=== PATIENT | male | born 1960 | race Caucasian/White ===

== ENCOUNTER 2018-09-23 12:30 | Emergency (ER) | payer BC ==
[~2018-09-23] VITALS: Ht 193 cm; Wt 142.0 kg
--- NOTE | 2018-09-23 13:37 | NUR ---
FROM LOBBY TO ROOM AT THIS TIME
[2018-09-23] MEDS ORDERED: SODIUM CHLORIDE FLUSH 10ML SYR IVF ONE (14:00)
[2018-09-23 14:13] LABS: BASOPHILS # (AUTO) 0.03 x10^3/uL (0-0.1); BASOPHILS % (AUTO) 0 % (0-1); EOSINOPHILS # (AUTO) 0.04 x10^3/uL (0-0.4); EOSINOPHILS % (AUTO) 1 % (1-7); LYMPHOCYTES # (AUTO) 1.15 x10^3/uL (1-3.4); LYMPHOCYTES % (AUTO) 14 % (22-44); MD NO; MEAN CORPUSCULAR HEMOGLOBIN 31.2 pg (27.5-34.5); MEAN CORPUSCULAR HGB CONC 33.5 g/dL (33.2-36.2); MEAN CORPUSCULAR VOLUME 93.1 fL (81-97); MEAN PLATELET VOLUME 9.1 fL (7.4-10.4); MONOCYTES # (AUTO) 0.64 x10^3/uL (0.2-0.8); MONOCYTES % (AUTO) 8 % (2-9); NEUTROPHILS # (AUTO) 6.21 x10^3/uL (1.8-6.8); NEUTROPHILS % (AUTO) 77 % (42-75); PLATELET COUNT 167 x10^3/uL (130-400); RED BLOOD COUNT 5.28 x10^6/uL (4.38-5.82); RED CELL DISTRIBUTION WIDTH 14.1 % (9.4-14.8)
[2018-09-23 14:25] LABS: ALBUMIN 4.3 g/dL (3.4-5.0); ANION GAP 8 mmol/L (5-15); CALCIUM 9.6 mg/dL (8.5-10.1); CHLORIDE 107 mmol/L (98-107)
[2018-09-23 14:30] LABS: CREATININE 1.38 mg/dL (0.7-1.3); TROPONIN I < 0.015 ng/mL (0.000-0.045)
[2018-09-23] MEDS ORDERED: PROB500T22 PO (14:34)
[2018-09-23] MEDS ORDERED: CHOL20002 PO (14:35)
[2018-09-23] MEDS ORDERED: CHOL100011 PO (14:35)
[2018-09-23] MEDS ORDERED: ALLO300T PO (14:35)
[2018-09-23] MEDS ORDERED: WARF6TAB47 PO (14:35)
--- NOTE | 2018-09-23 14:50 | NUR ---
Patient to CT 1450
--- NOTE | 2018-09-23 14:51 | NUR ---
Patient reports occasional SOB and pain upon inspiration only on the left side. Pain 4/10. Patient does not appear to be in acute distress.
--- NOTE | 2018-09-23 14:52 | NUR ---
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
[2018-09-23 15:26] VITALS: BP 145/94
[2018-09-23] MEDS ORDERED: OMNIPAQUE 350 MG/ML, 150 ML BOTTLE ONE (15:56)
[2018-09-23] MEDS ORDERED: SODIUM CHLORIDE 0.9% 1,000ML IVBOLUS ONE (16:00)
== END 2018-09-23 16:08 | disposition home or self-care (01) ==
LOC: ED 14:19 → UNDOADMIN 15:34 → EDIP 15:34 → ED 16:08
DX: R09.1 Pleurisy (principal); Z86.718 Personal history of other venous thrombosis and embolism
CPT/HCPCS: 36415; 71045; 71275; 80048; 82040; 84484; 85025; 93005; 99284; Q9967

== ENCOUNTER 2020-04-10 17:44 | Inpatient (IN) | payer BC ==
[~2020-04-10] VITALS: Ht 193 cm; Wt 124.0 kg
[~2020-04-10 17:44] MED LIST: ALLO300T PO; CHOL100011 PO; CHOL20002 PO; PROB500T22 PO; WARF6TAB47 PO
[2020-04-10 18:30] LABS: BASOPHILS % (AUTO) 1 % (0-1); EOSINOPHILS % (AUTO) 2 % (1-7); LYMPHOCYTES % (AUTO) 17 % (22-44); MEAN CORPUSCULAR HEMOGLOBIN 30.2 pg (27.5-34.5); MEAN CORPUSCULAR HGB CONC 33.1 g/dL (33.2-36.2); MEAN PLATELET VOLUME 9.8 fL (7.4-10.4); MONOCYTES % (AUTO) 9 % (2-9); NEUTROPHILS % (AUTO) 72 % (42-75); PLATELET COUNT 183 x10^3/uL (130-400); RED BLOOD COUNT 5.39 x10^6/uL (4.38-5.82); RED CELL DISTRIBUTION WIDTH 13.4 % (9.4-14.8)
[2020-04-10 18:33] LABS: MD NO
[2020-04-10 18:38] LABS: ALBUMIN 4.1 g/dL (3.4-5.0); ANION GAP 7 mmol/L (5-15); CALCIUM 9.7 mg/dL (8.5-10.1); CHLORIDE 106 mmol/L (98-107)
[2020-04-10 18:40] LABS: INTERNATIONAL NORMALIZED RATIO 2.04 (0.93-1.1); PROTHROMBIN TIME 21.5 Seconds (9.6-11.5)
[2020-04-10 18:43] LABS: ALKALINE PHOSPHATASE 57 U/L (45-117); BILIRUBIN,TOTAL 0.9 mg/dL (0.2-1.0); TOTAL PROTEIN 7.7 g/dL (6.4-8.2); TROPONIN I < 0.015 ng/mL (0.000-0.045)
[2020-04-10 18:45] LABS: ALANINE AMINOTRANSFERASE 37 U/L (12-78)
[2020-04-10] MEDS ORDERED: LORazepam 2 MG/ML, 1ML IVPush ONE (19:00)
[2020-04-10] MEDS ORDERED: LORazepam 2 MG/ML, 1ML ONE (19:18)
--- NOTE | 2020-04-10 19:45 | NUR ---
Traveled to MRI with altitude chamber technician. MRI screening form completed with this RN and pt. Given to altitude chamber technician. Medicated per MD order r/t claustrophobia
[2020-04-10] MEDS ORDERED: GADOTERATE 10 MMOL/20 ML SYR ONE (19:54)
--- NOTE | 2020-04-10 20:05 | NUR ---
Attempted report to floor at 2004. Pt remains at MRI with tech
--- NOTE | 2020-04-10 20:50 | NUR ---
Hospitalist at bedside
--- NOTE | 2020-04-10 20:52 | NUR ---
Report given to Oksana VELÁSQUEZ
[2020-04-10 21:25] VITALS: BP 170/89
[2020-04-10] MEDS ORDERED: HYDROcodone/APAP 5/325 TABLET PO PRN (21:30)
[2020-04-10] MEDS ORDERED: ACETAMINOPHEN 325 MG TABLET PO PRN (21:30)
[2020-04-10] MEDS ORDERED: DOCUSATE 100 MG CAPSULE PO PRN (21:30)
[2020-04-10] MEDS: NICOTINE 14MG/24 HR PATCH.TD24 TD SCH (21:30)
[2020-04-10] MEDS ORDERED: TEMAZEPAM 15 MG CAPSULE PO PRN (21:30)
[2020-04-10] MEDS: ATORVASTATIN 80 MG TABLET PO SCH (22:11)
[2020-04-10] MEDS ORDERED: WARFARIN 3 MG TABLET PO-COUM ONE (22:30)
[2020-04-11 02:29] VITALS: BP 125/74
[2020-04-11 05:29] LABS: BASOPHILS % (AUTO) 1 % (0-1); EOSINOPHILS % (AUTO) 3 % (1-7); LYMPHOCYTES % (AUTO) 22 % (22-44); MEAN CORPUSCULAR HEMOGLOBIN 30.3 pg (27.5-34.5); MEAN CORPUSCULAR HGB CONC 33.3 g/dL (33.2-36.2); MEAN PLATELET VOLUME 10.1 fL (7.4-10.4); MONOCYTES % (AUTO) 9 % (2-9); NEUTROPHILS % (AUTO) 65 % (42-75); PLATELET COUNT 180 x10^3/uL (130-400); RED BLOOD COUNT 5.18 x10^6/uL (4.38-5.82); RED CELL DISTRIBUTION WIDTH 13.1 % (9.4-14.8)
[2020-04-11 05:39] LABS: INTERNATIONAL NORMALIZED RATIO 1.85 (0.93-1.1); MD NO; PROTHROMBIN TIME 19.5 Seconds (9.6-11.5)
[2020-04-11 05:43] LABS: CHLORIDE 111 mmol/L (98-107)
[2020-04-11 05:51] LABS: CALCIUM 8.8 mg/dL (8.5-10.1); CHOL/HDL RATIO 5.5; CHOLESTEROL, TOTAL 188 mg/dL (140-239); CREATININE 0.93 mg/dL (0.7-1.3); HDL CHOL % 18 % (26-37); HDL CHOLESTEROL (DIRECT) 34 mg/dL (40-60); LDL CHOLESTEROL,CALCULATED 126 mg/dL (54-169); LDL/HDL RATIO 3.7 (0.5-3.0); TRIGLYCERIDES 138 mg/dL (50-200); VLDL CHOLESTEROL 28 mg/dL (0-25)
[2020-04-11 06:00] LABS: ANION GAP 5 mmol/L (5-15)
[2020-04-11 06:12] VITALS: BP 137/77
[2020-04-11] MEDS ORDERED: ASPIRIN 81 MG TABLET CHEW PO/NG SCH (09:00)
[2020-04-11] MEDS ORDERED: OMNIPAQUE 350 MG/ML, 75ML BOTTLE ONE (09:35)
[2020-04-11 12:00] VITALS: BP 120/73
[2020-04-11] MEDS ORDERED: WARFARIN 7.5 MG TABLET PO-COUM ONE (18:00)
[2020-04-11 18:54] VITALS: BP 147/80
[2020-04-11] MEDS ORDERED: WARFARIN 1 MG TABLET PO-COUM ONE (18:58)
[2020-04-11] MEDS ORDERED: WARFARIN 5 MG TABLET PO-COUM ONE (18:59)
[2020-04-11] MEDS: ATORVASTATIN 80 MG TABLET PO SCH (19:55)
[2020-04-11] MEDS: NICOTINE 14MG/24 HR PATCH.TD24 TD SCH (19:55)
[2020-04-12 00:46] VITALS: BP 128/76
[2020-04-12 05:16] LABS: INTERNATIONAL NORMALIZED RATIO 1.95 (0.93-1.1); PROTHROMBIN TIME 20.5 Seconds (9.6-11.5)
[2020-04-12 06:34] VITALS: BP 133/79
[2020-04-12 08:09] VITALS: BP 129/83
[2020-04-12 12:04] VITALS: BP 135/82
[2020-04-12] MEDS ORDERED: LIDOCAINE 2%, 20ML ONE (13:47)
[2020-04-12] MEDS ORDERED: APIX5TAB PO (16:40)
[2020-04-12] MEDS ORDERED: ATOR-2 PO (16:40)
[2020-04-12] MEDS ORDERED: WARFARIN 7.5 MG TABLET PO-COUM ONE (18:00)
[2020-04-12] MEDS ORDERED: APIXABAN 5 MG TABLET ONE (18:57)
[2020-04-12] MEDS ORDERED: APIXABAN 5 MG TABLET PO SCH (21:00)
== END 2020-04-12 19:28 | disposition home or self-care (01) | DRG 41 ==
LOC: ED 19:37 → 4WST 21:25
PROVIDERS: ADMIT Family Medicine; ATTEND Internal Medicine
PROC: 0JH602Z Insertion of Monitoring Device into Chest Subcutaneous Tissue and Fascia, Open Approach (ICD-10-PCS; principal; 2020-04-12)
DX: I63.9 Cerebral infarction, unspecified (principal); D68.59 Other primary thrombophilia; E66.2 Morbid (severe) obesity with alveolar hypoventilation; Q21.1 Atrial septal defect; E78.00 Pure hypercholesterolemia, unspecified; E78.5 Hyperlipidemia, unspecified; G89.29 Other chronic pain; I11.9 Hypertensive heart disease without heart failure; I73.9 Peripheral vascular disease, unspecified; I87.2 Venous insufficiency (chronic) (peripheral); M19.90 Unspecified osteoarthritis, unspecified site; R13.0 Aphagia; R47.01 Aphasia; Z79.01 Long term (current) use of anticoagulants; Z79.899 Other long term (current) drug therapy; Z80.1 Family history of malignant neoplasm of trachea, bronchus and lung; Z80.42 Family history of malignant neoplasm of prostate; Z86.711 Personal history of pulmonary embolism; Z86.718 Personal history of other venous thrombosis and embolism; Z86.73 Personal history of transient ischemic attack (TIA), and cerebral infarction without residual deficits; Z87.891 Personal history of nicotine dependence; Z80.9 Family history of malignant neoplasm, unspecified; Z80.41 Family history of malignant neoplasm of ovary; Z88.8 Allergy status to other drugs, medicaments and biological substances; Z68.33 Body mass index [BMI] 33.0-33.9, adult
CPT/HCPCS: 33285; 36415; J3490; 70450; 70498; 70553; 71045; 80048; 80053; 80061; 84484; 85025; 85610; 85730; 93005; 93306; 93356; 93970; C1764; G0378; Q9967; 92523-GN; A9575; J2060

== ENCOUNTER 2020-04-23 18:57 | Inpatient (IN) | payer BC ==
[~2020-04-23] VITALS: Ht 190.5 cm; Wt 126.3 kg
[~2020-04-23 18:57] MED LIST changes: +APIX5TAB PO; +ATOR-2 PO
[2020-04-23 19:35] LABS: BASOPHILS % (AUTO) 1 % (0-1); EOSINOPHILS % (AUTO) 2 % (1-7); LYMPHOCYTES % (AUTO) 16 % (22-44); MEAN CORPUSCULAR HEMOGLOBIN 30.1 pg (27.5-34.5); MEAN CORPUSCULAR HGB CONC 33.1 g/dL (33.2-36.2); MEAN PLATELET VOLUME 9.8 fL (7.4-10.4); MONOCYTES % (AUTO) 9 % (2-9); NEUTROPHILS % (AUTO) 73 % (42-75); PLATELET COUNT 187 x10^3/uL (130-400); RED BLOOD COUNT 5.62 x10^6/uL (4.38-5.82); RED CELL DISTRIBUTION WIDTH 13.2 % (9.4-14.8)
[2020-04-23 19:37] LABS: MD NO
--- NOTE | 2020-04-23 19:40 | NUR ---
PT HERE FOR CC OF STROKE LIKE SYMPTOMS FROM 10A-5P TODAY. STATES "IM HAVING THE SAME SYMPTOMS THE LAST TIME I HAD A TIA". STATES HE HAD TINGLING IN R SIDE OF TONGUE AND NECK, HEAVY SHOULDERS, TROUBLE SPEAKING AND SWALLOWING. PT STATES ALL SYMPTOMS HAVE RESOLVED CURRENTLY. SON AT BEDSIDE
[2020-04-23 19:44] LABS: PROTHROMBIN TIME 10.6 Seconds (9.6-11.5)
[2020-04-23 19:45] LABS: ALANINE AMINOTRANSFERASE 64 U/L (12-78); ANION GAP 2 mmol/L (5-15); CALCIUM 9.7 mg/dL (8.5-10.1); CHLORIDE 105 mmol/L (98-107)
[2020-04-23 19:49] LABS: ALKALINE PHOSPHATASE 64 U/L (45-117); BILIRUBIN,TOTAL 1.2 mg/dL (0.2-1.0); TOTAL PROTEIN 7.5 g/dL (6.4-8.2); TROPONIN I < 0.015 ng/mL (0.000-0.045)
--- NOTE | 2020-04-23 20:20 | NUR ---
MRI SCREENING SHEET FAXED
[2020-04-23] MEDS ORDERED: LORazepam 1MG TABLET ONE (20:47)
[2020-04-23] MEDS ORDERED: LORazepam 1MG TABLET PO ONE (21:00)
[2020-04-23] MEDS ORDERED: DIAZEPAM 5 MG/ML, 2ML ONE (21:21)
[2020-04-23] MEDS ORDERED: DIAZEPAM 5 MG/ML, 2ML IV ONE (21:30)
--- NOTE | 2020-04-23 21:30 | NUR ---
PT MEDICATED IN MRI FOR ANXIETY. IV PLACED. PT REPORTS RELIEF OF ANXIETY AFTER IV MED GIVEN.
--- NOTE | 2020-04-23 21:58 | NUR ---
PT BACK FROM MRI
--- NOTE | 2020-04-23 23:21 | NUR ---
PT AND SON UPDATED ON POC AND ADMISSION.
--- NOTE | 2020-04-23 23:42 | NUR ---
[facility] AT BEDSIDE
--- NOTE | 2020-04-23 23:52 | NUR ---
REPORT GIVEN TO PAWAN VELÁSQUEZ
[2020-04-24] MEDS ORDERED: hydrALAzine 20 MG/ML, 1ML IVPush PRN
[2020-04-24] MEDS ORDERED: ONDANSETRON 2MG/ML, 2ML IVPush PRN
[2020-04-24 00:26] VITALS: BP 130/82
[2020-04-24 00:30] VITALS: BP 130/82
[2020-04-24] MEDS ORDERED: ASCO500C10 PO (00:49)
[2020-04-24] MEDS ORDERED: ZINC50CA PO (00:49)
[2020-04-24 00:51] VITALS: BP 132/85
[2020-04-24 06:32] VITALS: BP 125/71
[2020-04-24] MEDS ORDERED: ACETAMINOPHEN 325 MG TABLET PO PRN ×2 (08:00)
[2020-04-24 09:15] LABS: BASOPHILS % (AUTO) 0 % (0-1); EOSINOPHILS % (AUTO) 3 % (1-7); LYMPHOCYTES % (AUTO) 16 % (22-44); MEAN CORPUSCULAR HEMOGLOBIN 30.2 pg (27.5-34.5); MEAN CORPUSCULAR HGB CONC 33.3 g/dL (33.2-36.2); MONOCYTES % (AUTO) 9 % (2-9); NEUTROPHILS % (AUTO) 71 % (42-75); PLATELET COUNT 170 x10^3/uL (130-400); RED BLOOD COUNT 5.59 x10^6/uL (4.38-5.82); RED CELL DISTRIBUTION WIDTH 13.2 % (9.4-14.8)
[2020-04-24 09:23] LABS: CALCIUM 9.5 mg/dL (8.5-10.1); CHLORIDE 107 mmol/L (98-107); CREATININE 1.09 mg/dL (0.7-1.3)
[2020-04-24 09:29] LABS: MD NO
[2020-04-24 09:30] LABS: ANION GAP 3 mmol/L (5-15)
[2020-04-24] MEDS ORDERED: APIX5TAB PO (10:56)
[2020-04-24] MEDS ORDERED: ASPI81TA45 PO (10:57)
== END 2020-04-24 13:22 | disposition home or self-care (01) | DRG 65 ==
LOC: ED 20:08 → EDIP 23:32 → 4WST 04-24 00:07 → DCLOUNGE 04-24 13:08
PROVIDERS: ADMIT Family Medicine; ATTEND Internal Medicine
DX: I62.02 Nontraumatic subacute subdural hemorrhage (principal); Q21.1 Atrial septal defect; R47.81 Slurred speech; M54.2 Cervicalgia; G89.29 Other chronic pain; I48.91 Unspecified atrial fibrillation; I10 Essential (primary) hypertension; G47.33 Obstructive sleep apnea (adult) (pediatric); M19.90 Unspecified osteoarthritis, unspecified site; F10.20 Alcohol dependence, uncomplicated; F12.10 Cannabis abuse, uncomplicated; E66.9 Obesity, unspecified; Y90.9 Presence of alcohol in blood, level not specified; E78.5 Hyperlipidemia, unspecified; I87.2 Venous insufficiency (chronic) (peripheral); Z86.711 Personal history of pulmonary embolism; Z86.718 Personal history of other venous thrombosis and embolism; Z79.01 Long term (current) use of anticoagulants; Z88.8 Allergy status to other drugs, medicaments and biological substances; Z80.9 Family history of malignant neoplasm, unspecified; Z87.891 Personal history of nicotine dependence; Z91.19 Patient's noncompliance with other medical treatment and regimen; Z86.73 Personal history of transient ischemic attack (TIA), and cerebral infarction without residual deficits; Z79.899 Other long term (current) drug therapy
CPT/HCPCS: 36415; 70551; 71045; 80048; 80053; 84484; 85025; 85610; 85730; 93005; J3360; 92523-GN

== ENCOUNTER 2020-04-26 15:59 | Inpatient (IN) | payer BC ==
[~2020-04-26] VITALS: Ht 193 cm; Wt 121.8 kg
[~2020-04-26 15:59] MED LIST changes: +ASCO500C10 PO; +ASPI81TA45 PO; +ZINC50CA PO
[2020-04-26 16:57] LABS: BASOPHILS % (AUTO) 1 % (0-1); EOSINOPHILS % (AUTO) 3 % (1-7); LYMPHOCYTES % (AUTO) 14 % (22-44); MEAN CORPUSCULAR HEMOGLOBIN 30.7 pg (27.5-34.5); MEAN CORPUSCULAR HGB CONC 33.9 g/dL (33.2-36.2); MEAN PLATELET VOLUME 9.9 fL (7.4-10.4); MONOCYTES % (AUTO) 9 % (2-9); NEUTROPHILS % (AUTO) 74 % (42-75); PLATELET COUNT 159 x10^3/uL (130-400); RED BLOOD COUNT 5.64 x10^6/uL (4.38-5.82); RED CELL DISTRIBUTION WIDTH 13.2 % (9.4-14.8)
[2020-04-26 16:59] LABS: ALBUMIN 3.7 g/dL (3.4-5.0); ANION GAP 3 mmol/L (5-15); CALCIUM 9.5 mg/dL (8.5-10.1); CHLORIDE 107 mmol/L (98-107); CREATININE 1.01 mg/dL (0.7-1.3); MD NO
--- NOTE | 2020-04-26 17:10 | NUR ---
pt has hx of recent strokes and was admitted here for this. pts previous poc was to start eliquis tomorrow. per son pt had 2 episodes of word salad this am and periodic difficulty with forming thoughts. pt axox4 and moves all extremities with strong equal strength in all extremities. no facial deficits noted. pupils pearrl.
--- NOTE | 2020-04-26 20:19 | NUR ---
spoke with neurology poc to admit pt. pt azeb with poc.
[2020-04-26] MEDS ORDERED: ONDANSETRON ODT 4 MG PO PRN (20:30)
[2020-04-26] MEDS ORDERED: POLYETHYLENE GLYCOL 17 GM PACKET PO PRN (20:30)
[2020-04-26] MEDS ORDERED: BISACODYL 10 MG SUPP PR PRN (20:30)
[2020-04-26] MEDS: SODIUM CHLORIDE FLUSH 10ML SYR IVF SCH (21:00)
[2020-04-26] MEDS: PROBENECID 500 MG TABLET PO SCH (21:00)
[2020-04-26] MEDS: ATORVASTATIN 80 MG TABLET PO SCH (21:00)
[2020-04-26] MEDS ORDERED: ATORVASTATIN 80 MG TABLET ONE (22:16)
--- NOTE | 2020-04-26 22:50 | NUR ---
REPORT TO BRIANAN OBREGON RN.
[2020-04-26 23:15] VITALS: BP 138/91
[2020-04-27 06:47] VITALS: BP 127/68
[2020-04-27] MEDS: SENNA/DOCUSATE TABLET PO SCH (09:00)
[2020-04-27] MEDS: CHOLECALCIFEROL 5,000u TAB PO SCH (09:00)
[2020-04-27] MEDS: ALLOPURINOL 300 MG TABLET PO SCH (09:00)
[2020-04-27] MEDS: PROBENECID 500 MG TABLET PO SCH ×2 (09:00→21:15)
[2020-04-27] MEDS: ASCORBIC ACID 500 MG TABLET PO SCH (09:00)
[2020-04-27] MEDS: ZINC SULFATE 220 MG CAPSULE PO SCH (09:00)
[2020-04-27] MEDS: ACETAMINOPHEN 325 MG TABLET PO PRN ×2 (09:05→21:20)
[2020-04-27] MEDS: SODIUM CHLORIDE FLUSH 10ML SYR IVF SCH ×2 (09:09→21:15)
[2020-04-27] MEDS ORDERED: LORazepam 2 MG/ML, 1ML ONE (11:44)
[2020-04-27] MEDS ORDERED: LORazepam 2 MG/ML, 1ML IVPush ONE ×2 (12:00→12:15)
[2020-04-27 13:18] VITALS: BP 130/83
[2020-04-27 20:09] VITALS: BP 126/71
[2020-04-27] MEDS: ATORVASTATIN 80 MG TABLET PO SCH (21:15)
[2020-04-28 04:00] VITALS: BP 114/76
[2020-04-28 07:08] VITALS: BP 150/90
[2020-04-28] MEDS: ZINC SULFATE 220 MG CAPSULE PO SCH (08:10)
[2020-04-28] MEDS: ACETAMINOPHEN 325 MG TABLET PO PRN (08:10)
[2020-04-28] MEDS: CHOLECALCIFEROL 5,000u TAB PO SCH (08:10)
[2020-04-28] MEDS: ASCORBIC ACID 500 MG TABLET PO SCH (08:10)
[2020-04-28] MEDS: PROBENECID 500 MG TABLET PO SCH ×2 (08:11→22:20)
[2020-04-28] MEDS: SENNA/DOCUSATE TABLET PO SCH (08:11)
[2020-04-28] MEDS: ALLOPURINOL 300 MG TABLET PO SCH (08:11)
[2020-04-28] MEDS: SODIUM CHLORIDE FLUSH 10ML SYR IVF SCH ×2 (08:12→22:22)
[2020-04-28 09:04] LABS: BASOPHILS % (AUTO) 1 % (0-1); EOSINOPHILS % (AUTO) 2 % (1-7); LYMPHOCYTES % (AUTO) 10 % (22-44); MEAN CORPUSCULAR HEMOGLOBIN 30.5 pg (27.5-34.5); MEAN CORPUSCULAR HGB CONC 33.9 g/dL (33.2-36.2); MEAN PLATELET VOLUME 9.6 fL (7.4-10.4); MONOCYTES % (AUTO) 8 % (2-9); NEUTROPHILS % (AUTO) 81 % (42-75); PLATELET COUNT 134 x10^3/uL (130-400); RED BLOOD COUNT 5.46 x10^6/uL (4.38-5.82); RED CELL DISTRIBUTION WIDTH 12.9 % (9.4-14.8)
[2020-04-28 09:12] LABS: ANION GAP 6 mmol/L (5-15); CALCIUM 8.9 mg/dL (8.5-10.1); CHLORIDE 108 mmol/L (98-107); CREATININE 0.94 mg/dL (0.7-1.3); MD NO
[2020-04-28] MEDS ORDERED: MORPHINE SULFATE 4 MG/ML, 1ML IVPush PRN (13:00)
[2020-04-28 13:30] VITALS: BP 139/85
[2020-04-28 20:18] VITALS: BP 145/77
[2020-04-28] MEDS: ATORVASTATIN 80 MG TABLET PO SCH (22:20)
[2020-04-29 03:35] VITALS: BP 129/82
[2020-04-29 05:31] LABS: BASOPHILS % (AUTO) 1 % (0-1); EOSINOPHILS % (AUTO) 3 % (1-7); LYMPHOCYTES % (AUTO) 14 % (22-44); MEAN CORPUSCULAR HGB CONC 34.3 g/dL (33.2-36.2); MEAN PLATELET VOLUME 10.2 fL (7.4-10.4); MONOCYTES % (AUTO) 8 % (2-9); NEUTROPHILS % (AUTO) 74 % (42-75); PLATELET COUNT 139 x10^3/uL (130-400)
[2020-04-29 05:37] LABS: MD NO
[2020-04-29 05:39] LABS: ALANINE AMINOTRANSFERASE 48 U/L (12-78); ALBUMIN 3.4 g/dL (3.4-5.0); ANION GAP 2 mmol/L (5-15); CALCIUM 8.8 mg/dL (8.5-10.1); CHLORIDE 108 mmol/L (98-107)
[2020-04-29 05:42] LABS: ALKALINE PHOSPHATASE 68 U/L (45-117); BILIRUBIN,TOTAL 1.8 mg/dL (0.2-1.0); CREATININE 1.05 mg/dL (0.7-1.3); TOTAL PROTEIN 6.8 g/dL (6.4-8.2)
[2020-04-29 07:48] VITALS: BP 132/82
[2020-04-29] MEDS: PROBENECID 500 MG TABLET PO SCH ×2 (09:00→21:00)
[2020-04-29] MEDS: ALLOPURINOL 300 MG TABLET PO SCH (09:00)
[2020-04-29] MEDS: SENNA/DOCUSATE TABLET PO SCH (09:00)
[2020-04-29] MEDS: SODIUM CHLORIDE FLUSH 10ML SYR IVF SCH ×2 (11:29→22:29)
[2020-04-29] MEDS: APIXABAN 5 MG TABLET PO SCH ×2 (11:31→22:29)
[2020-04-29] MEDS: ZINC SULFATE 220 MG CAPSULE PO SCH (11:31)
[2020-04-29] MEDS: CHOLECALCIFEROL 5,000u TAB PO SCH (11:32)
[2020-04-29] MEDS: ASCORBIC ACID 500 MG TABLET PO SCH (11:32)
[2020-04-29 12:19] VITALS: BP 116/74
[2020-04-29 20:19] VITALS: BP 134/82
[2020-04-29] MEDS: ATORVASTATIN 80 MG TABLET PO SCH (22:29)
[2020-04-30 01:49] VITALS: BP 120/70
[2020-04-30 07:56] VITALS: BP 115/75
[2020-04-30] MEDS: ALLOPURINOL 300 MG TABLET PO SCH (09:00)
[2020-04-30] MEDS: SENNA/DOCUSATE TABLET PO SCH (09:00)
[2020-04-30] MEDS: PROBENECID 500 MG TABLET PO SCH (09:00)
[2020-04-30] MEDS ORDERED: ATOR-2 PO (09:26)
[2020-04-30] MEDS ORDERED: APIX5TAB PO (09:26)
[2020-04-30] MEDS: CHOLECALCIFEROL 5,000u TAB PO SCH (10:00)
[2020-04-30] MEDS: ZINC SULFATE 220 MG CAPSULE PO SCH (10:00)
[2020-04-30] MEDS: ASCORBIC ACID 500 MG TABLET PO SCH (10:00)
[2020-04-30] MEDS: APIXABAN 5 MG TABLET PO SCH (10:00)
[2020-04-30] MEDS: SODIUM CHLORIDE FLUSH 10ML SYR IVF SCH (10:01)
[2020-04-30 12:42] VITALS: BP 142/82
[2020-04-30 14:21] VITALS: BP 92/60
== END 2020-04-30 14:30 | disposition home or self-care (01) | DRG 65 ==
LOC: ED 19:43 → EDIP 20:57 → 4WST 23:06 → DCLOUNGE 04-30 14:17
PROVIDERS: ADMIT Family Medicine; ATTEND Family Medicine
DX: I63.9 Cerebral infarction, unspecified (principal); D68.9 Coagulation defect, unspecified; E78.5 Hyperlipidemia, unspecified; F10.10 Alcohol abuse, uncomplicated; F12.90 Cannabis use, unspecified, uncomplicated; I10 Essential (primary) hypertension; I48.91 Unspecified atrial fibrillation; M10.9 Gout, unspecified; Z72.0 Tobacco use; Z79.01 Long term (current) use of anticoagulants; Z86.711 Personal history of pulmonary embolism; Z88.8 Allergy status to other drugs, medicaments and biological substances; G47.33 Obstructive sleep apnea (adult) (pediatric); I87.2 Venous insufficiency (chronic) (peripheral); M19.90 Unspecified osteoarthritis, unspecified site; R47.01 Aphasia; Z86.718 Personal history of other venous thrombosis and embolism; G43.C0 Periodic headache syndromes in child or adult, not intractable; Z87.74 Personal history of (corrected) congenital malformations of heart and circulatory system; Z91.19 Patient's noncompliance with other medical treatment and regimen
CPT/HCPCS: 36415; 70450; 70551; 80048; 80053; 82040; 85025; 99285; G0378; J2060

== ENCOUNTER 2020-07-06 09:01 | Day surgery (SDC) | payer BC ==
[~2020-07-06] VITALS: Ht 193 cm; Wt 111.0 kg
[2020-07-06] MEDS ORDERED: SODIUM CHLORIDE 0.9% 1,000 ML IV ONE (10:30)
[2020-07-06 10:55] VITALS: BP 132/86
[2020-07-06] MEDS ORDERED: PLEASE ENTER HEIGHT AND WEIGHT MC SCH (11:00)
[2020-07-06 11:19] LABS: BASOPHILS % (AUTO) 1 % (0-1); EOSINOPHILS % (AUTO) 4 % (1-7); LYMPHOCYTES % (AUTO) 20 % (22-44); MEAN CORPUSCULAR HEMOGLOBIN 29.7 pg (27.5-34.5); MEAN CORPUSCULAR HGB CONC 34.3 g/dL (33.2-36.2); MEAN PLATELET VOLUME 9.9 fL (7.4-10.4); MONOCYTES % (AUTO) 9 % (2-9); NEUTROPHILS % (AUTO) 66 % (42-75); PLATELET COUNT 178 x10^3/uL (130-400); RED CELL DISTRIBUTION WIDTH 13.8 % (9.4-14.8)
[2020-07-06 11:20] LABS: ANION GAP 5 mmol/L (5-15); CALCIUM 9.2 mg/dL (8.5-10.1); CHLORIDE 111 mmol/L (98-107); CREATININE 0.99 mg/dL (0.7-1.3); MD NO
[2020-07-06] MEDS ORDERED: LIDOCAINE 1%, 20ML ONE (11:50)
[2020-07-06] MEDS ORDERED: NALOXONE 0.4 MG/ML, 1ML ONE (12:44)
[2020-07-06] MEDS ORDERED: ROCURONIUM 10MG/ML,5ML ONE (12:44)
[2020-07-06] MEDS ORDERED: PROPOFOL 10 MG/ML, 20ML ONE ×2 (12:44→13:13)
[2020-07-06] MEDS ORDERED: SUCCINYLCHOLINE 20 MG/ML, 10ML ONE (12:44)
[2020-07-06] MEDS ORDERED: MIDAZOLAM 1 MG/ML, 2ML ONE (12:47)
[2020-07-06] MEDS ORDERED: FENTANYL PF 250 MCG/5ML ONE (12:47)
[2020-07-06] MEDS ORDERED: VANCOMYCIN PMX 1GM/200ML 200 ML ONE (12:52)
[2020-07-06] MEDS ORDERED: ONDANSETRON 2MG/ML, 2ML ONE (13:13)
[2020-07-06] MEDS ORDERED: HEPARIN 1,000 UNITS/ML, 10ML ONE (13:13)
[2020-07-06] MEDS ORDERED: DEXAMETHASONE 4 MG/ML, 5ML ONE (13:13)
[2020-07-06] MEDS ORDERED: APIXABAN 5 MG TABLET ONE (13:57)
[2020-07-06] MEDS ORDERED: APIXABAN 5 MG TABLET PO ONE (14:00)
[2020-07-06] MEDS ORDERED: hydrALAzine 20 MG/ML, 1ML IVPush PRN (14:30)
[2020-07-06] MEDS ORDERED: LABETALOL 20 MG/4 ML IVPush PRN (14:30)
[2020-07-06] MEDS ORDERED: SODIUM CHLORIDE 0.9% 1,000 ML IV SCH (14:30)
[2020-07-06] MEDS ORDERED: ACETAMINOPHEN 650 MG/20.3 ML UDC PO PRN (14:30)
[2020-07-06] MEDS ORDERED: ACETAMINOPHEN 650 MG SUPP PR PRN (14:30)
[2020-07-06] MEDS ORDERED: ONDANSETRON 2MG/ML, 2ML IVPush PRN (14:30)
== END 2020-07-06 16:29 | disposition home or self-care (01) ==
LOC: CACL 09:01
PROVIDERS: ATTEND Internal Medicine Cardiovascular Disease
DX: I63.89 Other cerebral infarction (principal); I10 Essential (primary) hypertension; G47.33 Obstructive sleep apnea (adult) (pediatric); E78.5 Hyperlipidemia, unspecified; M10.9 Gout, unspecified; F12.90 Cannabis use, unspecified, uncomplicated; Z20.822 Contact with and (suspected) exposure to COVID-19; Z79.899 Other long term (current) drug therapy; Z88.8 Allergy status to other drugs, medicaments and biological substances; Z72.89 Other problems related to lifestyle; Z98.890 Other specified postprocedural states; Z86.718 Personal history of other venous thrombosis and embolism
CPT/HCPCS: 36415; 76937; 80048; 85025; 85347; 93005; 93308; 93312; 93321; 93325; 93580; C1760; C1769; C1817; C1894; J0330; J1100; J1644; J2250; J2310; J2405; J2704; J3010; J3370; U0003; 93582

== ENCOUNTER → 2020-08-08 | Outpatient (CLI) | payer BC | END | disposition home or self-care (01) | LOC: CVU 12:39 | PROVIDERS: ATTEND Internal Medicine Cardiovascular Disease | DX: Z01.810 Encounter for preprocedural cardiovascular examination (principal); Q21.1 Atrial septal defect; I65.29 Occlusion and stenosis of unspecified carotid artery; I34.0 Nonrheumatic mitral (valve) insufficiency; Z56.82 Military deployment status | CPT/HCPCS: 93306 ==